=== PATIENT | female | born 1990 | race African-American/Black ===

== ENCOUNTER 2016-10-07 00:40 | Emergency (ER) | payer OTHER ==
[~2016-10-07] VITALS: Ht 172.7 cm; Wt 100.5 kg
[~2016-10-07 00:40] MED LIST: ALBUTEROL; CLINDESSE5.8 GM VG; KEFLEX500 MG PO; NO MEDS; TORADOL10 MG PO; TYLENOL WITH C1 EACH PO; ZITHROMAX Z-PA250 MG PO
[2016-10-07] MEDS ORDERED: AZITHROMYCIN250 MG PO (02:04)
[2016-10-07] MEDS ORDERED: HYCODAN SYRUP480 ML PO (02:04)
[2016-10-07 02:27] VITALS: BP 111/68
== END 2016-10-07 02:28 | disposition home or self-care (01) ==
LOC: EME 00:40
DX: J20.9 Acute bronchitis, unspecified (principal)
CPT/HCPCS: 71020; 94640; 99281; 99285